=== PATIENT | female | born 1990 | race African-American/Black ===

== ENCOUNTER 2019-07-23 03:45 | Emergency (ER) | payer MEDICAID, MEDICARE ==
[~2019-07-23] VITALS: Ht 167.6 cm; Wt 62.0 kg
[2019-07-23] MEDS ORDERED: KETOROLAC 30MG/ML VIAL IV STA (04:14)
[2019-07-23] MEDS ORDERED: ONDANSETRON HCL 4MG/2ML INJ IV STA (04:14)
[2019-07-23 04:58] LABS: BASOPHILS % 0.2 % (0.0-2.0); HEMATOCRIT. 35.4 % (36.0-48.0); HEMOGLOBIN. 12.2 g/dL (12.0-16.0); LYMPHOCYTES % 16.9 % (20.0-50.0); MEAN CORPUSCULAR HEMOGLOBIN 30.6 pg (28.0-32.0); MEAN CORPUSCULAR VOLUME 88.9 fL (81.0-99.0); MEAN PLATELET VOLUME 8.4 fl (7.4-10.4); NEUTROPHILS % 79.9 % (40.0-76.0); PLATELET 432 x1000/uL (130-400); RED BLOOD CELL COUNT 3.99 mill/uL (4.2-5.4)
[2019-07-23 05:10] LABS: CHLORIDE 106 mEq/L (98-107)
[2019-07-23] MEDS ORDERED: POTASSIUM CHLORIDE 20MEQ TABLET SR PO ONE (06:00)
[2019-07-23] MEDS ORDERED: HALOPERIDOL LACTATE 5MG/ML VIAL IM ONE (06:00)
[2019-07-23] MEDS ORDERED: SODIUM CHLORIDE 0.9% 1,000 ML IV ONE (06:00)
[2019-07-23 06:59] LABS: CLARITY URINE CLEAR (CLEAR); COLOR URINE YELLOW (YELLOW); KETONES URINE 3+ (NEGATIVE); LEUKOCYTE ESTERASE URINE 1+ (NEGATIVE); NITRITE URINE NEGATIVE (NEGATIVE); OCCULT BLOOD URINE 1+ (NEGATIVE); PH URINE 7.5 (4.5-8.0); PROTEIN URINE 1+ (NEGATIVE); SPECIFIC GRAVITY URINE 1.033 (1.005-1.030)
[2019-07-23 09:08] VITALS: BP 126/73
== END 2019-07-23 09:12 | disposition home or self-care (01) ==
LOC: ER 03:45
DX: R10.11 Right upper quadrant pain (principal); F12.10 Cannabis abuse, uncomplicated
CPT/HCPCS: 36415; 74176; 76705; 80053; 81003; 81025; 83605; 83690; 85025; 86850; 86900; 86901; 96361; 96372; 96374; 96375; 99285; J1630; J1885; J2405; J7030

== ENCOUNTER 2019-07-25 11:38 | Emergency (ER) | payer MEDICAID, MEDICARE ==
[~2019-07-25] VITALS: Ht 162.6 cm; Wt 59.0 kg
[2019-07-25] MEDS ORDERED: SODIUM CHLORIDE 0.9% 1,000 ML IV ONE (14:04)
[2019-07-25] MEDS ORDERED: FAMOTIDINE 20MG/2ML VIAL IV STA (14:04)
[2019-07-25] MEDS ORDERED: ONDANSETRON HCL 4MG/2ML INJ IV STA (14:04)
[2019-07-25 14:41] LABS: BASOPHILS % 0.4 % (0.0-2.0); HEMATOCRIT. 35.5 % (36.0-48.0); LYMPHOCYTES % 10.3 % (20.0-50.0); MEAN CORPUSCULAR HEMOGLOBIN 30.5 pg (28.0-32.0); MEAN CORPUSCULAR VOLUME 90.7 fL (81.0-99.0); MEAN PLATELET VOLUME 8.8 fl (7.4-10.4); MONOCYTES % 2.5 % (2.0-8.0); NEUTROPHILS % 86.8 % (40.0-76.0); PLATELET 436 x1000/uL (130-400); RED BLOOD CELL COUNT 3.92 mill/uL (4.2-5.4); RED CELL DISTRIBUTION WIDTH 15.3 % (11.6-14.6)
[2019-07-25 14:46] LABS: CHLORIDE 108 mEq/L (98-107)
[2019-07-25 14:49] LABS: HCG SCREEN NEGATIVE
[2019-07-25] MEDS ORDERED: DIPHENHYDRAMINE 50MG/ML VIAL IV ONE (15:15)
[2019-07-25] MEDS ORDERED: METOCLOPRAMIDE HCL 10MG/2ML VIAL IV ONE (15:15)
[2019-07-25] MEDS ORDERED: ONDANSETRON HCL 4MG/2ML INJ IV ONE (16:45)
[2019-07-25 17:40] VITALS: BP 128/70
== END 2019-07-25 17:43 | disposition home or self-care (01) ==
LOC: ER 11:48
DX: K52.9 Noninfective gastroenteritis and colitis, unspecified (principal); K29.70 Gastritis, unspecified, without bleeding; F17.290 Nicotine dependence, other tobacco product, uncomplicated; F12.10 Cannabis abuse, uncomplicated
CPT/HCPCS: 36415; 80053; 83690; 84703; 85025; 93005; 96361; 96374; 96375; 96376; 99285; J1200; J2405; J2765; J3490; J7030

== ENCOUNTER 2019-08-16 03:47 | Emergency (ER) | payer MEDICARE ==
[~2019-08-16] VITALS: Ht 162.6 cm; Wt 61.0 kg
[2019-08-16] MEDS ORDERED: ONDANSETRON HCL 4MG/2ML INJ IV STA (04:14)
[2019-08-16] MEDS ORDERED: SODIUM CHLORIDE 0.9% 1,000 ML IV ONE (04:14)
[2019-08-16 04:52] LABS: BASOPHILS % 0.4 % (0.0-2.0); HEMATOCRIT. 35.2 % (36.0-48.0); HEMOGLOBIN. 11.9 g/dL (12.0-16.0); LYMPHOCYTES % 10.4 % (20.0-50.0); MEAN CORPUSCULAR HEMOGLOBIN 30.6 pg (28.0-32.0); MEAN CORPUSCULAR VOLUME 90.5 fL (81.0-99.0); MEAN PLATELET VOLUME 8.8 fl (7.4-10.4); MONOCYTES % 3.3 % (2.0-8.0); NEUTROPHILS % 85.9 % (40.0-76.0); PLATELET 355 x1000/uL (130-400); RED BLOOD CELL COUNT 3.89 mill/uL (4.2-5.4); RED CELL DISTRIBUTION WIDTH 16.1 % (11.6-14.6)
[2019-08-16 04:56] LABS: CLARITY URINE CLEAR (CLEAR); COLOR URINE YELLOW (YELLOW); KETONES URINE 2+ (NEGATIVE); LEUKOCYTE ESTERASE URINE NEGATIVE (NEGATIVE); NITRITE URINE NEGATIVE (NEGATIVE); OCCULT BLOOD URINE 1+ (NEGATIVE); PROTEIN URINE 1+ (NEGATIVE)
[2019-08-16 04:57] LABS: CHLORIDE 108 mEq/L (98-107)
[2019-08-16] MEDS ORDERED: METOCLOPRAMIDE HCL 10MG/2ML VIAL IV ONE (05:00)
[2019-08-16] MEDS ORDERED: KETOROLAC 30MG/ML VIAL IV ONE (05:00)
[2019-08-16] MEDS ORDERED: LORAZEPAM 0.5MG TABLET PO ONE (05:00)
[2019-08-16 05:06] LABS: HCG SCREEN NEGATIVE
[2019-08-16 05:14] LABS: PROTHROMBIN TIME 10.7 sec (9.6-11.0)
[2019-08-16 06:40] VITALS: BP 106/55
== END 2019-08-16 06:42 | disposition home or self-care (01) ==
LOC: ER 03:55
DX: R10.9 Unspecified abdominal pain (principal); R11.15 Cyclical vomiting syndrome unrelated to migraine; R11.0 Nausea; F12.10 Cannabis abuse, uncomplicated
CPT/HCPCS: 36415; 74021; 80053; 81003; 83690; 84703; 85025; 85610; 96361; 96374; 96375; 99284; J1885; J2405; J2765; J7030

== ENCOUNTER 2022-05-23 00:47 | Emergency (ER) | payer MEDICARE ==
[~2022-05-23] VITALS: Ht 165.1 cm; Wt 60.0 kg
[2022-05-23 00:55] VITALS: BP 141/81
[2022-05-23] MEDS ORDERED: KETOROLAC 15MG/ML VIAL IV ONE (01:30)
[2022-05-23 03:14] LABS: BASOPHILS % 0.2 % (0.0-2.0); HEMATOCRIT. 35.8 % (36.0-48.0); LYMPHOCYTES % 11.7 % (20.0-50.0); MEAN CORPUSCULAR HEMOGLOBIN 30.6 pg (28.0-32.0); MEAN CORPUSCULAR VOLUME 91.5 fL (81.0-99.0); MONOCYTES % 3.2 % (2.0-8.0); NEUTROPHILS % 84.9 % (40.0-76.0); PLATELET 370 x1000/uL (130-400); RED BLOOD CELL COUNT 3.91 mill/uL (4.2-5.4); RED CELL DISTRIBUTION WIDTH 15.4 % (11.6-14.6)
[2022-05-23 03:18] LABS: HCG SCREEN NEGATIVE
[2022-05-23 03:20] LABS: CHLORIDE 107 mEq/L (98-107)
== END 2022-05-23 04:45 | disposition left against medical advice (07) ==
LOC: ER 00:49
DX: R10.84 Generalized abdominal pain (principal)
CPT/HCPCS: 36415; 80053; 84703; 85025; 99283